=== PATIENT | male | born 1945 | race Caucasian/White ===

== ENCOUNTER → 2017-01-19 | Outpatient (CLI) | payer OTHER ==
[~2017-01-19] MED LIST: AMLO-511 PO; ASPI-1182 PO; ATOR40TA28; FURO20 PO; GABA-531 PO; INSULIN; LISI40TA4 PO; METF10002 PO; RANI150T12 PO
== END | disposition home or self-care (01) ==
LOC: RADPV 09:18
PROVIDERS: ATTEND Hospitalist
DX: N40.0 Benign prostatic hyperplasia without lower urinary tract symptoms (principal)
CPT/HCPCS: 76770